=== PATIENT | male | born 2000 | race Caucasian/White ===

== ENCOUNTER → 2020-05-16 10:01 | Outpatient (ROUT) | payer OTHER, SELFPAY ==
[2020-05-16 10:27] LABS: COVID19 -Nasal RAPID Negative (Negative)
== END ==
PROVIDERS: Family Provider Pediatrics; Visit Provider Family Medicine
DX: Z20.822 Contact with and (suspected) exposure to COVID-19 (principal)
CPT/HCPCS: 87635

== ENCOUNTER → 2020-10-05 16:06 | Outpatient (CLI) | payer OTHER, SELFPAY ==
[2020-10-05] MEDS: COVID-19 VACC, Ad26(JANSSEN)/PF 0.5 ML IM (16:16)
== END ==
PROVIDERS: Family Provider Pediatrics; Visit Provider Internal Medicine
DX: Z23 Encounter for immunization (principal)
CPT/HCPCS: 0031A; 91303

== ENCOUNTER → 2024-06-17 07:40 | Outpatient (CLI) | payer BC, SELFPAY ==
[2024-06-17 08:15] LABS: Alanine Aminotransferase 26 IU/L (<50); Albumin 4.6 g/dL (3.5-5.0); Albumin Globulin Ratio 1.8 (1.0-2.8); Alkaline Phosphatase 48 U/L (38-126); Aspartate Aminotransferase 28 IU/L (17-59); Bilirubin Total 0.9 mg/dL (0.2-1.3); Bilirubin Unconjugated 0.7 mg/dL (0.0-1.1); Cholesterol 194 mg/dL (140-199); Globulin 2.6 g/dL (1.7-4.1); HDL Cholesterol 80 mg/dL (40-60); HEMOLYSIS < 15 (0-50); LDL Cholesterol Calculated 97 mg/dL (<100); Total Protein 7.2 g/dL (6.3-8.2); Triglycerides 83 mg/dL (35-150)
== END ==
PROVIDERS: Family Provider Pediatrics; Referring Provider Dermatology; Visit Provider Dermatology
DX: L70.0 Acne vulgaris (principal)
CPT/HCPCS: 36415; 80061; 80076

== ENCOUNTER → 2024-09-14 07:11 | Outpatient (CLI) | payer BC, SELFPAY ==
[2024-09-14 08:15] LABS: Alanine Aminotransferase 35 IU/L (<50); Albumin 4.6 g/dL (3.5-5.0); Alkaline Phosphatase 60 U/L (38-126); Aspartate Aminotransferase 39 IU/L (17-59); Bilirubin Total 0.6 mg/dL (0.2-1.3); Bilirubin Unconjugated 0.2 mg/dL (0.0-1.1); Cholesterol 239 mg/dL (140-199); Globulin 2.3 g/dL (1.7-4.1); HDL Cholesterol 64 mg/dL (40-60); HEMOLYSIS < 15 (0-50); LDL Cholesterol Calculated 148 mg/dL (<100); Total Protein 6.9 g/dL (6.3-8.2); Triglycerides 134 mg/dL (35-150)
== END ==
LOC: LAB 07:12
PROVIDERS: Family Provider Pediatrics; PCP Family Medicine; Referring Provider Dermatology; Visit Provider Dermatology
DX: L70.0 Acne vulgaris (principal); K13.0 Diseases of lips; Z79.899 Other long term (current) drug therapy
CPT/HCPCS: 36415; 80061; 80076

== ENCOUNTER → 2025-04-20 07:45 | Outpatient (CLI) | payer BC, SELFPAY | PROVIDERS: PCP Family Medicine; Visit Provider Nurse Practitioner Family | DX: J02.9 Acute pharyngitis, unspecified (principal) | CPT/HCPCS: 87070 ==